=== PATIENT | male | born 1960 | race African-American/Black ===

== ENCOUNTER 2017-04-17 07:03 | Emergency (ER) | payer OTHER ==
[~2017-04-17] VITALS: Ht 190.5 cm; Wt 122.5 kg
[2017-04-17 07:13] VITALS: BP 172/89
--- NOTE | 2017-04-17 07:23 | PHYS DOC ---
Adult General Chief Complaint Chief Complaint: ABDOMINAL PAIN HPI HPI Patient is a 56 year old male with history of diabetes type 2, hypertension, high cholesterol, acute otitis, who presents today complaining of moderate constant right upper quadrant abdominal pain with no nausea vomiting for 5 days. Patient denies any fever. Patient states the last time he had pancreatitis was 5 years ago and he was seen at [facility] and has been following up with a specialist. Patient denies any alcohol use. He states the last time he had pancreatitis the pain was on the right upper quadrant and this pain feels similar. He states his pain is worsened by oral intake and he has not been eating much for the last 5 days. He states he has also had a cough for a few days. Patient states the last time he was dx with pancreatitis he had an URI. Review of Systems Review of Systems Constitutional: Denies fever or chills [] Eyes: Denies change in visual acuity, redness, or eye pain [] HENT: Denies nasal congestion or sore throat [] Respiratory: reports cough denies shortness of breath [] Cardiovascular: No additional information not addressed in HPI [] GI: Right upper quadrant abdominal pain, denies nausea, vomiting, bloody stools or diarrhea [] : Denies dysuria or hematuria [] Musculoskeletal: Denies back pain or joint pain [] Integument: Denies rash or skin lesions [] Neurologic: Denies headache, focal weakness or sensory changes [] All other systems were reviewed and found to be within normal limits, except as documented in this note. Current Medications Current Medications Current Medications Medications (Trade) Dose Ordered Sig/[facility] Start Time Stop Time Status Last Admin Dose Admin Famotidine (Pepcid Vial) 20 mg 1X ONCE 04/17/17 07:30 04/17/17 07:31 DC 04/17/17 07:30 20 MG Fentanyl Citrate (Fentanyl 2ml Vial) 50 mcg 1X ONCE 04/17/17 07:30 04/17/17 07:31 DC 04/17/17 07:34 50 MCG Info (Do NOT chart on this entry -- for MONITORING) 1 each PRN DAILY PRN 04/17/17 08:00 04/19/17 07:59 Iohexol (Omnipaque 300 Mg/ml) 75 ml 1X ONCE 04/17/17 08:00 04/17/17 08:01 DC 04/17/17 08:04 75 ML Ondansetron HCl (Zofran) 4 mg 1X ONCE 04/17/17 07:30 04/17/17 07:31 DC 04/17/17 07:32 4 MG Sodium Chloride 1,000 ml @ 1,000 mls/hr 1X ONCE 04/17/17 07:30 04/17/17 08:29 DC 04/17/17 07:28 1,000 MLS/HR Allergies Allergies Allergies Coded Allergies Type Severity Reaction Last Updated Verified No Known Drug Allergies 04/17/17 No Physical Exam Physical Exam Constitutional: Well developed, well nourished, no acute distress, non-toxic appearance. [] HENT: Normocephalic, atraumatic, bilateral external ears normal, oropharynx moist, no oral exudates, nose normal. [] Eyes: PERRLA, EOMI, conjunctiva normal, no discharge. [] Neck: Normal range of motion, no tenderness, supple, no stridor. [] Cardiovascular:Heart rate regular rhythm, no murmur [] Lungs & Thorax: Bilateral breath sounds clear to auscultation [] Abdomen: Bowel sounds normal, soft, slight tenderness to the right upper quadrant with negative [place] sign, no right lower quadrant tenderness, no masses, no pulsatile masses. [] Skin: Warm, dry, no erythema, no rash. [] Back: No tenderness, no CVA tenderness. [] Extremities: No tenderness, no cyanosis, no clubbing, ROM intact, no edema. [] Neurologic: Alert and oriented X 3, normal motor function, normal sensory function, no focal deficits noted. [] Psychologic: Affect normal, judgement normal, mood normal. [] Current Patient Data Vital Signs Vital Signs Date Time Temp Pulse Resp B/P (MAP) Pulse Ox O2 Delivery O2 Flow Rate FiO2 04/17/17 07:13 98.9 93 18 172/89 (116) 96 98.9 Lab Values Laboratory Tests Test 04/17/17 07:18 White Blood Count 11.5 x10^3/uL (4.0-11.0) H Red Blood Count 4.76 x10^6/uL (4.30-5.70) Hemoglobin 13.8 g/dL (13.0-17.5) Hematocrit 41.8 % (39.0-53.0) Mean Corpuscular Volume 88 fL (79-100) Mean Corpuscular Hemoglobin 29 pg (25-35) Mean Corpuscular Hemoglobin Concent 33 g/dL (31-37) Red Cell Distribution Width 14.9 % (11.5-14.5) H Platelet Count 282 x10^3/uL (140-400) Neutrophils (%) (Auto) 70 % (31-73) Lymphocytes (%) (Auto) 21 % (24-48) L Monocytes (%) (Auto) 7 % (0-9) Eosinophils (%) (Auto) 1 % (0-3) Basophils (%) (Auto) 1 % (0-3) Neutrophils # (Auto) 8.1 x10^3uL (1.8-7.7) H Lymphocytes # (Auto) 2.4 x10^3/uL (1.0-4.8) Monocytes # (Auto) 0.7 x10^3/uL (0.0-1.1) Eosinophils # (Auto) 0.1 x10^3/uL (0.0-0.7) Basophils # (Auto) 0.1 x10^3/uL (0.0-0.2) Urine Collection Type Unknown Urine Color Yellow Urine Clarity Clear Urine pH 5.5 Urine Specific [place] >=1.030 Urine Protein Negative mg/dL (NEG-TRACE) Urine Glucose (UA) >=1000 mg/dL (NEG) Urine Ketones (Stick) Trace mg/dL (NEG) Urine Blood Negative (NEG) Urine Nitrite Negative (NEG) Urine Bilirubin Negative (NEG) Urine Urobilinogen Dipstick 0.2 mg/dL (0.2 mg/dL) Urine Leukocyte Esterase Negative (NEG) Urine RBC 0 /HPF (0-2) Urine WBC Rare /HPF (0-4) Urine Squamous Epithelial Cells Few /LPF Urine Bacteria Few /HPF (0-FEW) Urine Mucus Mod /LPF Sodium Level 138 mmol/L (136-145) Potassium Level 3.6 mmol/L (3.5-5.1) Chloride Level 101 mmol/L (98-107) Carbon Dioxide Level 29 mmol/L (21-32) Anion Gap 8 (6-14) Blood Urea Nitrogen 14 mg/dL (8-26) Creatinine 0.9 mg/dL (0.7-1.3) Estimated GFR (Cockcroft-Gault) 87.3 BUN/Creatinine Ratio 16 (6-20) Glucose Level 230 mg/dL (70-99) H Calcium Level 9.3 mg/dL (8.5-10.1) Total Bilirubin 0.5 mg/dL (0.2-1.0) Aspartate Amino Transferase (AST) 9 U/L (15-37) L Alanine Aminotransferase (ALT) 19 U/L (16-63) Alkaline Phosphatase 113 U/L (46-116) Total Protein 8.4 g/dL (6.4-8.2) H Albumin 3.6 g/dL (3.4-5.0) Albumin/Globulin Ratio 0.8 (1.0-1.7) L Lipase 457 U/L (73-393) H Urine Opiates Screen Pos (NEG) Urine Methadone Screen Neg (NEG) Urine Barbiturates Neg (NEG) Urine Phencyclidine Screen Neg (NEG) Urine Amphetamine/Methamphetamine Neg (NEG) Urine Benzodiazepines Screen Neg (NEG) Urine Cocaine Screen Neg (NEG) Urine Cannabinoids Screen Neg (NEG) Ethyl Alcohol Level < 10 mg/dL (0-10) Urine Ethyl Alcohol Neg (NEG) Laboratory Tests 04/17/17 07:18 Laboratory Tests 04/17/17 07:18 EKG EKG [] Radiology/Procedures Radiology/Procedures []PROCEDURE: CHEST AP ONLY Single view chest History:cough, upper back pain for 5 days An AP view of the chest is submitted. Comparison: 08/07/2005. Findings: There is no significant infiltrate, pleural effusion, or pneumothorax. The pericardial cardiac silhouette is within normal limits in size. Impression: There is no evidence of acute cardiopulmonary disease. DICTATED and SIGNED BY: TAWANA MCCLELLAND MD DATE: 04/17/17 0754 CC: SHIRIN BUNN APRN; JUAN FU MD ~ Course & Med Decision Making Course & Med Decision Making Pertinent Labs and Imaging studies reviewed. (See chart for details) This is a 56-year-old male patient with history of pancreatitis who presents today complaining of right upper quadrant abdominal pain. He is also complaining of a cough. WBC 11.5. Lipase 457, glucose 230. Lipase was 457, CT of the abdomen and pelvic was negative for any acute findings. Patient's pain is well controlled. He was discharged on a clear liquid diet. He has a specialist at [facility] Dr. Cornell that he follows up with for chronic pancreatitis. Recommended he follows up tomorrow. Discharged with Zofran and 10 tablets of [place]. Dragon Disclaimer Dragon Disclaimer This electronic medical record was generated, in whole or in part, using a voice recognition dictation system. Departure Departure Impression: Primary Impression: Pancreatitis, acute Additional Impression: Right upper quadrant abdominal pain Disposition: 01 HOME, SELF-CARE Condition: STABLE Patient Instructions: Abdominal Pain, Acute Pancreatitis Additional Instructions: You were seen with abdominal pain. Your CT of the abdomen and pelvic was negative for any acute findings. A lipase was 457, normal is 73-393 this is a slight elevation from normal. Please take a clear liquid diet the next 1-3 days and push fluids. Please follow-up with the specialist at [facility] as soon as possible. Call them tomorrow morning and set up a follow-up appointment. Please return to the emergency room if symptoms worsen. Scripts Hydrocodone/Apap 5-325 (NORCO 5-325 TABLET) 1 Each Tablet 1 TAB PO Q4-6HRS Y for PAIN, #10 TAB Prov: SHRIIN BUNN APRN 04/17/17 Ondansetron (ZOFRAN ODT) 4 Mg Tab.rapdis 1 TAB SL Q8HRS, #15 TAB Prov: SHIRIN BUNN APRN 04/17/17 Problem Qualifiers Primary Impression: Pancreatitis, acute Pancreatitis type: other Acute pancreatitis complication: unspecified Qualified Codes: K85.80 - Other acute pancreatitis without necrosis or infection SHIRIN BUNN APRN Apr 17, 2017 07:23
[2017-04-17] MEDS ORDERED: fentaNYL PF VIAL 100 MCG/2 ML VIAL IV ONE (07:30)
[2017-04-17] MEDS ORDERED: FAMOTIDINE 20 MG/2 ML VIAL IVP ONE (07:30)
[2017-04-17] MEDS ORDERED: IV NORMAL SALINE 1000ML BAG 1,000 ML IV ONE (07:30)
[2017-04-17] MEDS ORDERED: ONDANSETRON PF 4 MG/2 ML VIAL. IV ONE (07:30)
[2017-04-17 07:35] LABS: BASO # 0.1 x10^3/uL (0.0-0.2); BASO % 1 % (0-3); EOS % 1 % (0-3); HEMATOCRIT 41.8 % (39.0-53.0); HEMOGLOBIN 13.8 g/dL (13.0-17.5); LYMPH # 2.4 x10^3/uL (1.0-4.8); LYMPH % 21 % (24-48); MEAN CORPUSCULAR HEMOGLOBIN 29 pg (25-35); MEAN CORPUSCULAR HGB CONC 33 g/dL (31-37); MEAN CORPUSCULAR VOLUME 88 fL (79-100); MONO % 7 % (0-9); NEUT % 70 % (31-73); PLATELET COUNT 282 x10^3/uL (140-400); RED BLOOD COUNT 4.76 x10^6/uL (4.30-5.70); RED CELL DISTRIBUTION WIDTH 14.9 % (11.5-14.5); WHITE BLOOD COUNT 11.5 x10^3/uL (4.0-11.0)
[2017-04-17 07:36] LABS: BILIRUBIN,URINE NEGATIVE (NEG); GLUCOSE,URINE >=1000 mg/dL (NEG); NITRITE,URINE NEGATIVE (NEG); PH,URINE 5.5; PROTEIN,URINE NEGATIVE (NEG-TRACE); UROBILINOGEN,URINE 0.2 mg/dL (0.2 mg/dL)
[2017-04-17 07:40] LABS: SQUAMOUS EPITHELIAL CELL,UR FEW /LPF
[2017-04-17 07:41] LABS: BACTERIA,URINE FEW /HPF (0-FEW); RBC,URINE 0 /HPF (0-2); WBC,URINE RARE /HPF (0-4)
[2017-04-17 07:43] LABS: BARBITURATES NEG (NEG); BENZODIAZEPINES NEG (NEG); CALCIUM 9.3 mg/dL (8.5-10.1); CANNABINOIDS NEG (NEG); COCAINE NEG (NEG); CREATININE 0.9 mg/dL (0.7-1.3); GFR 87.3; METHADONE NEG (NEG); OPIATES POS (NEG); PHENCYCLIDINE NEG (NEG); POTASSIUM 3.6 mmol/L (3.5-5.1)
[2017-04-17 07:48] LABS: ALBUMIN 3.6 g/dL (3.4-5.0); ALBUMIN/GLOBULIN RATIO 0.8 (1.0-1.7); TOTAL BILIRUBIN 0.5 mg/dL (0.2-1.0); TOTAL PROTEIN 8.4 g/dL (6.4-8.2)
--- NOTE | 2017-04-17 07:59 | RAD ---
Single view chest History:cough, upper back pain for 5 days An AP view of the chest is submitted. Comparison: 08/07/2005. Findings: There is no significant infiltrate, pleural effusion, or pneumothorax. The pericardial cardiac silhouette is within normal limits in size. Impression: There is no evidence of acute cardiopulmonary disease.
[2017-04-17] MEDS ORDERED: IOHEXOL 300 MG/ML 100ML VIAL. IV ONE (08:00)
[2017-04-17] MEDS ORDERED: CONTRAST GIVEN MC PRN (08:00)
--- NOTE | 2017-04-17 08:34 | RAD ---
CT ABD PELV W/ IV CONTRST ONLY History:Abdominal pain on the right side, back pain for 4 days Technique: After administration of intravenous contrast, CT imaging was performed of the abdomen and pelvis, multiplanar construction images submitted. Exposure: One or more of the following individualized dose reduction techniques were utilized for this exam: 1. Automated exposure control.2. Adjustment of the mA and/or KV according to patient size.3. Use of iterative reconstruction technique. Contrast: 75 cc Omnipaque 300 Comparison: 10/10/2009 Findings: There is no significant abnormality of the limited visualized lung bases. There is no focal abnormality of the liver, spleen, pancreas, adrenal glands, gallbladder. Both kidneys enhance, no hydronephrosis. There is a 3 mm right renal calculus inferiorly. No ureteral calculus is identified. Accurate evaluation of bowel is limited without oral contrast. There is no significant bowel dilatation, free air, free fluid. Normal appendix is visualized. There is more advanced degenerative disc disease with vacuum phenomena L4-5, spondylosis at this level and at least mild lateral recess stenosis bilaterally. There is moderate bilateral L4-5 neural foramina compromise. Impression: 1.No significant acute abnormality is identified. Normal appendix is visualized. There is small nonobstructive right renal calculus. 2. There is degenerative disc disease and spondylosis at L4-5 at which there is at least mild lateral recess stenosis, also bilateral moderate neural foramina compromise.
[2017-04-17] MEDS ORDERED: HYDR-971 PO (09:31)
[2017-04-17] MEDS ORDERED: ONDA4TAB10 SL (09:31)
== END 2017-04-17 09:48 | disposition home or self-care (01) ==
LOC: ER 07:03
DX: K85.90 Acute pancreatitis without necrosis or infection, unspecified (principal); R05 Cough; E78.00 Pure hypercholesterolemia, unspecified; E11.9 Type 2 diabetes mellitus without complications; I10 Essential (primary) hypertension
CPT/HCPCS: 36415; 71010; 74177; 80053; 80307; 81001; 83690; 85025; 96361; 96374; 96375; 99285; G0480; J2405; J3010; J7030; Q9967; S0028; G0479

== ENCOUNTER 2017-08-12 08:40 | Emergency (ER) | payer OTHER ==
[2017-08-12 09:21] LABS: ADD MAN DIFF? NO
[2017-08-12 09:23] LABS: BASO # 0.1 x10^3/uL (0.0-0.2); BASO % 1 % (0-3); EOS # 0.1 x10^3/uL (0.0-0.7); EOS % 1 % (0-3); HEMATOCRIT 42.7 % (39.0-53.0); HEMOGLOBIN 13.9 g/dL (13.0-17.5); LYMPH # 1.7 x10^3/uL (1.0-4.8); LYMPH % 20 % (24-48); MEAN CORPUSCULAR HEMOGLOBIN 29 pg (25-35); MEAN CORPUSCULAR HGB CONC 33 g/dL (31-37); MEAN CORPUSCULAR VOLUME 88 fL (79-100); MONO # 0.6 x10^3/uL (0.0-1.1); MONO % 7 % (0-9); NEUT # 5.9 x10^3uL (1.8-7.7); NEUT % 71 % (31-73); PLATELET COUNT 285 x10^3/uL (140-400); RED BLOOD COUNT 4.83 x10^6/uL (4.30-5.70); RED CELL DISTRIBUTION WIDTH 14.4 % (11.5-14.5); WHITE BLOOD COUNT 8.4 x10^3/uL (4.0-11.0)
[2017-08-12] MEDS: ONDANSETRON PF 4 MG/2 ML VIAL. IV (09:30)
[2017-08-12] MEDS: fentaNYL PF VIAL 100 MCG/2 ML VIAL IV (09:31)
[2017-08-12] MEDS: IV NORMAL SALINE 1000ML BAG 1,000 ML IV (09:32)
[2017-08-12 09:35] LABS: ANION GAP 14 (6-14); BLOOD UREA NITROGEN 20 mg/dL (8-26); CALCIUM 9.9 mg/dL (8.5-10.1); CARBON DIOXIDE 26 mmol/L (21-32); CHLORIDE 99 mmol/L (98-107); CREATININE 1.1 mg/dL (0.7-1.3); GFR 83.5; GLUCOSE 310 mg/dL (70-99); POTASSIUM 4.1 mmol/L (3.5-5.1); SODIUM 139 mmol/L (136-145)
[2017-08-12 09:44] LABS: TROPONINI < 0.017 ng/mL (0.000-0.055)
[2017-08-12 09:49] LABS: ALBUMIN 3.9 g/dL (3.4-5.0); ALK PHOS 130 U/L (46-116); ALT (SGPT) 22 U/L (16-63); DIRECT BILIRUBIN 0.1 mg/dL (0.0-0.2); LIPASE 618 U/L (73-393); TOTAL BILIRUBIN 0.6 mg/dL (0.2-1.0); TOTAL PROTEIN 8.4 g/dL (6.4-8.2)
[2017-08-12 10:01] LABS: AST (SGOT) 7 U/L (15-37)
[2017-08-12] MEDS: LIDO:MAALOX:DONNATAL 1:1:1 15 ML SINGLE DOSE SWSW (10:57)
[2017-08-12 13:58] LABS: BILIRUBIN,URINE NEGATIVE (NEG); CLARITY,URINE CLEAR; COLOR,URINE YELLOW; GLUCOSE,URINE 500 mg/dL (NEG); PROTEIN,URINE NEGATIVE (NEG-TRACE)
[2017-08-12 13:59] LABS: BACTERIA,URINE 0 /HPF (0-FEW); HYALINE CASTS, URINE FEW /HPF; NITRITE,URINE NEGATIVE (NEG); RBC,URINE 0 /HPF (0-2); SQUAMOUS EPITHELIAL CELL,UR OCC /LPF; UROBILINOGEN,URINE 0.2 mg/dL (0.2 mg/dL); WBC,URINE 0 /HPF (0-4)
== END 2017-08-12 14:55 | disposition home or self-care (01) ==
LOC: ER 08:40
DX: R10.13 Epigastric pain (principal); E11.9 Type 2 diabetes mellitus without complications; E78.00 Pure hypercholesterolemia, unspecified; I10 Essential (primary) hypertension; K21.9 Gastro-esophageal reflux disease without esophagitis; F32.9 Major depressive disorder, single episode, unspecified
CPT/HCPCS: 36415; 76705; 80048; 80076; 81001; 83605; 83690; 84484; 85025; 93005; 96361; 96374; 96375; 99285-25; J2405; J3010; J7030

== ENCOUNTER → 2017-08-16 | Outpatient (CLI) | payer OTHER ==
[2017-08-16] MEDS: IOHEXOL 240 MG/ML 50ML VIAL. PO (09:00)
[2017-08-16] MEDS: IOHEXOL 300 MG/ML 100ML VIAL. IV (09:32)
== END | disposition home or self-care (01) ==
LOC: KCIC CT 08:13
DX: K85.90 Acute pancreatitis without necrosis or infection, unspecified (principal); N20.0 Calculus of kidney; K76.0 Fatty (change of) liver, not elsewhere classified; N32.89 Other specified disorders of bladder
CPT/HCPCS: 74178; Q9966; Q9967

== ENCOUNTER → 2017-08-19 | Day surgery (SDC) | payer OTHER, BC ==
[~2017-08-19] MED LIST: LIDOCAINE 1% PF 2 ML VIAL. ID; LIDOCAINE 2% 100 MG/5 ML SYRINGE.; MORPHINE SULFATE 4 MG/ML DISP.SYRIN. IV; ONDANSETRON PF 4 MG/2 ML VIAL. IV; PROCHLORPERAZINE 10 MG/2 ML VIAL. IV; PROPOFOL 40 ML IV; fentaNYL PF VIAL 100 MCG/2 ML VIAL IV
[2017-08-19] MEDS: IV RINGERS,LACTATED 1000ML 1,000 ML IV (07:00)
[2017-08-19 10:07] LABS: POC GLUCOSE 251 mg/dL (70-99)
[2017-08-19 12:22] LABS: CHOLESTEROL 159 mg/dL (0-200); HDLC 46 mg/dL (40-60); LDLC 89 mg/dL (0-100); NON-HDL CHOLESTEROL 113 mg/dL (0-129); TRIGLYCERIDES 122 mg/dL (0-150); VLDLC 24 mg/dL (0-40)
[2017-08-19 12:23] LABS: CHOLESTEROL/HDL RATIO 3.5
== END ==
LOC: ENDOS 09:31
DX: K63.5 Polyp of colon (principal); K57.30 Diverticulosis of large intestine without perforation or abscess without bleeding; K64.0 First degree hemorrhoids; E11.9 Type 2 diabetes mellitus without complications; E78.00 Pure hypercholesterolemia, unspecified; Z85.048 Personal history of other malignant neoplasm of rectum, rectosigmoid junction, and anus; Z98.890 Other specified postprocedural states; Z87.891 Personal history of nicotine dependence; Z72.89 Other problems related to lifestyle; Z79.4 Long term (current) use of insulin
CPT/HCPCS: 36415; 80061; 82962; 88305; J2704

== ENCOUNTER → 2017-08-24 | Outpatient (CLI) | payer OTHER, BC ==
[2017-08-24] MEDS: SINCALIDE IV (12:32)
[2017-08-24] MEDS: NORMAL SALINE IV (12:32)
== END | disposition home or self-care (01) ==
LOC: NM 10:51
DX: K85.90 Acute pancreatitis without necrosis or infection, unspecified (principal); I10 Essential (primary) hypertension; E11.9 Type 2 diabetes mellitus without complications; Z79.4 Long term (current) use of insulin
CPT/HCPCS: 78226; 96374; 96375; A9537; J2805

== ENCOUNTER 2018-08-07 12:27 | Emergency (ER) | payer BC, OTHER ==
[~2018-08-07] VITALS: Ht 190.5 cm; Wt 112.9 kg
[~2018-08-07 12:27] MED LIST changes: +ALPR1TAB6 PO; +ATOR40TA59 PO; +BUPR300T3 PO; +CANA300T PO; +GLYB5TAB3 PO; +HYDR-2761 PO; +HYDR-3164 PO; +HYDR12.575 PO; +INSU300I SQ; -LIDOCAINE 1% PF 2 ML VIAL. ID; -LIDOCAINE 2% 100 MG/5 ML SYRINGE.; +METF500T16 PO; -MORPHINE SULFATE 4 MG/ML DISP.SYRIN. IV; +ONDA4TAB10 SL; -ONDANSETRON PF 4 MG/2 ML VIAL. IV; +PANT20TA2 PO; -PROCHLORPERAZINE 10 MG/2 ML VIAL. IV; +PROM5SYR2 PO; -PROPOFOL 40 ML IV; +SILD100T PO; -fentaNYL PF VIAL 100 MCG/2 ML VIAL IV
[2018-08-07] MEDS ORDERED: fentaNYL PF VIAL 100 MCG/2 ML VIAL IV ONE ×2 (14:15→16:00)
[2018-08-07] MEDS ORDERED: IV NORMAL SALINE 1000ML BAG 1,000 ML IV ONE ×2 (14:15→16:00)
--- NOTE | 2018-08-07 14:19 | PHYS DOC ---
Past Medical History Past Medical History: Depression, Diabetes-Type II, GERD, High Cholesterol, Hypertension Past Surgical History: Other Additional Past Surgical Histo: PCL L KNEE Alcohol Use: None Drug Use: None Adult General Chief Complaint Chief Complaint: ABDOMINAL PAIN HPI HPI Patient is a 58 year old male who presents with 1 week of right upper quadrant abdominal pain that she he rates as 7 out of 10. Patient rates his pain radiates around to his right upper back and feels like he is being stabbed. Patient denies nausea, vomiting, diarrhea, constipation, dysuria, chest pain, numbness or tingling. Patient states that he does get occasionally dizzy and short of air. Review of Systems Review of Systems Constitutional: Denies fever or chills [] Eyes: Denies change in visual acuity, redness, or eye pain [] HENT: Denies nasal congestion or sore throat [] Respiratory: Denies cough. +shortness of breath [] Cardiovascular: No additional information not addressed in HPI [] GI: Right Upper quadrant abdominal pain, denies nausea, vomiting, bloody stools or diarrhea [] : Denies dysuria or hematuria [] Musculoskeletal: Denies back pain or joint pain [] Integument: Denies rash or skin lesions [] Neurologic: Dizziness. Denies headache, focal weakness or sensory changes [] All other systems were reviewed and found to be within normal limits, except as documented in this note. Current Medications Current Medications Current Medications Medications (Trade) Dose Ordered Sig/[facility] Start Time Stop Time Status Last Admin Dose Admin Acetaminophen (Tylenol Supp) 650 mg PRN Q4HRS PRN 08/07/18 17:00 Fentanyl Citrate (Fentanyl 2ml Vial) 50 mcg PRN Q1HR PRN 08/07/18 17:15 08/08/18 17:14 Hydromorphone HCl (Dilaudid) 0.5 mg PRN Q2HRS PRN 08/07/18 17:00 Info (CONTRAST GIVEN -- Rx MONITORING) 1 each PRN DAILY PRN 08/07/18 15:15 08/09/18 15:14 Iohexol (Omnipaque 300 Mg/ml) 75 ml 1X ONCE 08/07/18 15:15 08/07/18 15:16 DC Lorazepam (Ativan) 1 mg PRN Q4HRS PRN 08/07/18 17:00 Ondansetron HCl (Zofran) 4 mg PRN Q8HRS PRN 08/07/18 17:15 08/08/18 17:14 Sodium Chloride 1,000 ml @ 80 mls/hr [id number] 08/07/18 17:12 08/08/18 17:11 Allergies Allergies Allergies Coded Allergies Type Severity Reaction Last Updated Verified No Known Drug Allergies 08/19/17 No Physical Exam Physical Exam Constitutional: Well developed, well nourished, no acute distress, non-toxic appearance. [] HENT: Normocephalic, atraumatic, bilateral external ears normal, oropharynx moist, no oral exudates, nose normal. [] Eyes: PERRLA, EOMI, conjunctiva normal, no discharge. [] Neck: Normal range of motion, no tenderness, supple, no stridor. [] Cardiovascular:Heart rate regular rhythm, no murmur [] Lungs & Thorax: Bilateral breath sounds clear to auscultation [] Abdomen: Bowel sounds normal, soft, RUQ tenderness, no masses, no pulsatile masses. [] Skin: Warm, dry, no erythema, no rash. [] Back: No tenderness, no CVA tenderness. [] Extremities: No tenderness, no cyanosis, no clubbing, ROM intact, no edema. [] Neurologic: Alert and oriented X 3, normal motor function, normal sensory function, no focal deficits noted. [] Psychologic: Affect normal, judgement normal, mood normal. [] Current Patient Data Vital Signs Vital Signs Date Time Temp Pulse Resp B/P (MAP) Pulse Ox O2 Delivery O2 Flow Rate FiO2 08/07/18 13:12 98.4 97 16 142/80 (100) 99 Room Air 98.4 Lab Values Laboratory Tests Test 08/07/18 14:00 08/07/18 14:30 Urine Collection Type Unknown Urine Color Yellow Urine Clarity Clear Urine pH 5.0 Urine Specific [place] >=1.030 Urine Protein Negative mg/dL (NEG-TRACE) Urine Glucose (UA) >=1000 mg/dL (NEG) Urine Ketones (Stick) Trace mg/dL (NEG) Urine Blood Negative (NEG) Urine Nitrite Negative (NEG) Urine Bilirubin Negative (NEG) Urine Urobilinogen Dipstick 0.2 mg/dL (0.2 mg/dL) Urine Leukocyte Esterase Negative (NEG) Urine RBC Occ /HPF (0-2) Urine WBC 1-4 /HPF (0-4) Urine Squamous Epithelial Cells Few /LPF Urine Amorphous Sediment Present /HPF Urine Bacteria 0 /HPF (0-FEW) Urine Hyaline Casts Many /HPF Urine Mucus Mod /LPF Urine Opiates Screen Neg (NEG) Urine Methadone Screen Neg (NEG) Urine Barbiturates Neg (NEG) Urine Phencyclidine Screen Neg (NEG) Urine Amphetamine/Methamphetamine Neg (NEG) Urine Benzodiazepines Screen Pos (NEG) Urine Cocaine Screen Neg (NEG) Urine Cannabinoids Screen Neg (NEG) Urine Ethyl Alcohol Neg (NEG) White Blood Count 7.2 x10^3/uL (4.0-11.0) Red Blood Count 4.48 x10^6/uL (4.30-5.70) Hemoglobin 13.2 g/dL (13.0-17.5) Hematocrit 39.6 % (39.0-53.0) Mean Corpuscular Volume 89 fL (79-100) Mean Corpuscular Hemoglobin 30 pg (25-35) Mean Corpuscular Hemoglobin Concent 33 g/dL (31-37) Red Cell Distribution Width 13.8 % (11.5-14.5) Platelet Count 243 x10^3/uL (140-400) Neutrophils (%) (Auto) 59 % (31-73) Lymphocytes (%) (Auto) 29 % (24-48) Monocytes (%) (Auto) 8 % (0-9) Eosinophils (%) (Auto) 3 % (0-3) Basophils (%) (Auto) 1 % (0-3) Neutrophils # (Auto) 4.2 x10^3uL (1.8-7.7) Lymphocytes # (Auto) 2.0 x10^3/uL (1.0-4.8) Monocytes # (Auto) 0.6 x10^3/uL (0.0-1.1) Eosinophils # (Auto) 0.2 x10^3/uL (0.0-0.7) Basophils # (Auto) 0.1 x10^3/uL (0.0-0.2) Sodium Level 134 mmol/L (136-145) L Potassium Level 4.1 mmol/L (3.5-5.1) Chloride Level 95 mmol/L (98-107) L Carbon Dioxide Level 30 mmol/L (21-32) Anion Gap 9 (6-14) Blood Urea Nitrogen 23 mg/dL (8-26) Creatinine 1.7 mg/dL (0.7-1.3) H Estimated GFR (Cockcroft-Gault) 50.3 BUN/Creatinine Ratio 14 (6-20) Glucose Level 452 mg/dL (70-99) H Calcium Level 9.6 mg/dL (8.5-10.1) Total Bilirubin 0.4 mg/dL (0.2-1.0) Aspartate Amino Transferase (AST) 10 U/L (15-37) L Alanine Aminotransferase (ALT) 20 U/L (16-63) Alkaline Phosphatase 128 U/L (46-116) H Troponin I Quantitative < 0.017 ng/mL (0.000-0.055) Total Protein 8.3 g/dL (6.4-8.2) H Albumin 3.6 g/dL (3.4-5.0) Albumin/Globulin Ratio 0.8 (1.0-1.7) L Lipase 507 U/L (73-393) H Laboratory Tests 08/07/18 14:30 Laboratory Tests 08/07/18 14:30 EKG EKG Sinus rhythm and no STEMI Interpretation Time: [address] Patel Radiology/Procedures Radiology/Procedures [] Impressions: [facility] [address] [place], [place] [id number] IMAGING REPORT Signed PATIENT: VIKA TODD ACCOUNT: [id number] : 1960 LOCATION: ER AGE: 58 SEX: M EXAM STATUS: REG ER ORD. PHYSICIAN: PAWAN CHAPMAN APRN REASON: SOA PROCEDURE: CHEST PA & LATERAL PROCEDURE: CHEST PA LATERAL CLINICAL INDICATION: UPPER ABD PAIN, HX PANCREATITIS, GERD, HTN, DIABETES COMPARISON: None FINDINGS: No pneumothorax identified. Cardiac and mediastinal contours unremarkable. No pulmonary consolidation or acute airspace disease. No acute osseous abnormalities identified. IMPRESSION: No pulmonary consolidation or acute airspace disease. Electronically signed by: Randy Sarah DO (08/07/2018 3:03 PM) [facility] DICTATED and SIGNED BY: RANDY SARAH DO DATE: 08/07/18 1503 [facility] [address] [place] [address] IMAGING REPORT Signed PATIENT: VIKA TODD ACCOUNT: [id number] : 1960 LOCATION: ER AGE: 58 SEX: M EXAM STATUS: REG ER ORD. PHYSICIAN: PAWAN CHAPMAN APRN REASON: RUQ ABDOMINAL PAIN PROCEDURE: CT ABD PELV W/ IV CONTRST ONLY CT study of the abdomen and pelvis with contrast Clinical indications: Right upper quadrant abdominal pain. At technique: After IV infusion of 60 cc of Omnipaque 300, helical CT scanning of the abdomen and pelvis was performed. No GI contrast was administered. This may decrease the sensitivity to detect GI tract pathology. PQRS compliance Statement One or more of the following individualized dose reduction techniques were utilized for this study: 1. Automated exposure control 2. Adjustment of the mA and/or kV according to patient size 3. Use of iterative reconstruction technique COMPARISON: August 16, 2017. FINDINGS: The liver and spleen and gallbladder are normal. No extra hepatic biliary ductal dilatation is seen. The pancreas enhances homogeneously. There is chronic peripancreatic increased soft tissue attenuation around the head and neck of the pancreas. This was seen previously. No peripancreatic free fluid or pseudocyst is evident. No dilatation of main pancreatic duct is evident. Retroperitoneal lymph nodes are unchanged. No focal aneurysmal dilatation of the abdominal aorta is seen. No adrenal mass is evident. Small nonobstructing stone of the lower pole of the right kidney is seen. No hydronephrosis or hydroureter is evident on either side. There is chronic perinephric inflammatory stranding. This is unchanged. No pyelonephritis is evident by CT. Urinary bladder wall is smooth. Urinary bladder is not abnormally distended. There is moderate fecal retention within the rectum and colon. Terminal ileum is unremarkable. The appendix is normal. Wall thickening of the stomach and duodenum is seen which may be secondary to incomplete distention but could be due to gastroduodenitis. No obstructive bowel pattern is evident. No free air or free fluid or mesenteric edema is seen. No lung base consolidation is evident. No lytic process is evident. IMPRESSION: There is chronic peripancreatic inflammation around the head and neck of the pancreas. This could be due to old pancreatitis and chronic scarring but correlation with pancreatic enzymes is recommended. Pancreatic neoplasia could have this appearance as well but this is unchanged and no new mass is evident in this area. The head and neck of pancreas are unchanged in size. In addition, there is no progressive dilatation of the main pancreatic duct or extrahepatic bile duct. Stable retroperitoneal lymph nodes nodes. Nonobstructing lower pole right renal stone. Chronic perinephric inflammatory change which is unchanged. Moderate fecal retention throughout the colon and down into the rectum. There is diffuse thickening of the stomach and duodenum which may be due to incomplete distention but may be seen with gastroduodenitis. In addition, there is wall thickening of the distal esophagus which may be seen with reflux esophagitis. Electronically signed by: Jesi Johnson MD (08/07/2018 4:16 PM) [id number] DICTATED and SIGNED BY: JESI JOHNSON MD DATE: 08/07/18 1616 Course & Med Decision Making Course & Med Decision Making Patient is a 58 year old male who presents with 1 week of right upper quadrant abdominal pain that she he rates as 7 out of 10. Patient rates his pain radiates around to his right upper back and feels like he is being stabbed. Patient denies nausea, vomiting, diarrhea, constipation, dysuria, chest pain, numbness or tingling. Patient states that he does get occasionally dizzy and short of air. Skin pink warm and dry. Mucous Membranes are moist. Patient states he's been eating the BRAT diet to see if that would help. Ambulatory with a steady gait. No extremity edema. Abdomen is soft and tender at the right upper quadrant. Patient does have tenderness to the right upper back also. No signs are within normal limits. Afebrile. Patient states he has a history of pancreatitis of which that that is what this feels like, hypertension, high cholesterol, GERD, diabetes II. Lungs are clear to auscultation all lobes. Heart rate regular without murmur. No focal weaknesses. Speaks in full clear sentences. CT ABD PELV shows IMPRESSION: There is chronic peripancreatic inflammation around the head and neck of the pancreas. This could be due to old pancreatitis and chronic scarring but correlation with pancreatic enzymes is recommended. Pancreatic neoplasia could have this appearance as well but this is unchanged and no new mass is evident in this area. The head and neck of pancreas are unchanged in size. In addition, there is no progressive dilatation of the main pancreatic duct or extrahepatic bile duct. Stable retroperitoneal lymph nodes nodes. Nonobstructing lower pole right renal stone. Chronic perinephric inflammatory change which is unchanged. Moderate fecal retention throughout the colon and down into the rectum. There is diffuse thickening of the stomach and duodenum which may be due to incomplete distention but may be seen with gastroduodenitis. In addition, there is wall thickening of the distal esophagus which may be seen with reflux esophagitis. Chest xray shows no acute findings. Lipase 507, Alk Phos 128, Blood sugar 452. I have spoken to Dr Alaniz and patient will be admitted for pancreatitis and I will also consult GI. 174: Dr Alaniz has spoken with patient and Dr Alaniz states to me that the patient is refusing to be admitted. Patient will sign out AMA. Arielle Disclaimer Dragon Disclaimer This electronic medical record was generated, in whole or in part, using a voice recognition dictation system. Departure Departure Impression: Primary Impression: Pancreatitis Disposition: 07 AGAINST MEDICAL ADVICE Condition: STABLE Referrals: JUAN FU MD (PCP) Patient Instructions: Acute Pancreatitis Additional Instructions: Follow up with GI as soon as possible. Scripts Hydrocodone/Apap 5-325 (NORCO 5-325 TABLET) 1 Each Tablet 1 TAB PO PRN Q6HRS PRN for PAIN, #5 TAB 0 Refills Prov: PAWAN CHAPMAN APRN 08/07/18 Problem Qualifiers Primary Impression: Pancreatitis Chronicity: acute Pancreatitis type: unspecified pancreatitis type Acute pancreatitis complication: unspecified Qualified Codes: K85.90 - Acute pancreatitis without necrosis or infection, unspecified PAWAN CHAPMAN APRN Aug 07, 2018 14:19
[2018-08-07 14:21] LABS: BILIRUBIN,URINE NEGATIVE (NEG); CLARITY,URINE CLEAR; COLOR,URINE YELLOW; NITRITE,URINE NEGATIVE (NEG); PROTEIN,URINE NEGATIVE (NEG-TRACE); UROBILINOGEN,URINE 0.2 mg/dL (0.2 mg/dL)
[2018-08-07 14:27] LABS: SQUAMOUS EPITHELIAL CELL,UR FEW /LPF
[2018-08-07 14:28] LABS: AMORPHOUS SEDIMENT,UR PRESENT /HPF; AMPHETAMINE/METHAMPHETAMINE NEG (NEG); BACTERIA,URINE 0 /HPF (0-FEW); BARBITURATES NEG (NEG); BENZODIAZEPINES POS (NEG); CANNABINOIDS NEG (NEG); COCAINE NEG (NEG); HYALINE CASTS, URINE MANY /HPF; METHADONE NEG (NEG); OPIATES NEG (NEG); PHENCYCLIDINE NEG (NEG); RBC,URINE OCC /HPF (0-2)
[2018-08-07 14:39] LABS: BASO # 0.1 x10^3/uL (0.0-0.2); BASO % 1 % (0-3); EOS # 0.2 x10^3/uL (0.0-0.7); EOS % 3 % (0-3); HEMATOCRIT 39.6 % (39.0-53.0); HEMOGLOBIN 13.2 g/dL (13.0-17.5); LYMPH % 29 % (24-48); MEAN CORPUSCULAR HEMOGLOBIN 30 pg (25-35); MEAN CORPUSCULAR HGB CONC 33 g/dL (31-37); MEAN CORPUSCULAR VOLUME 89 fL (79-100); MONO # 0.6 x10^3/uL (0.0-1.1); MONO % 8 % (0-9); NEUT # 4.2 x10^3uL (1.8-7.7); NEUT % 59 % (31-73); PLATELET COUNT 243 x10^3/uL (140-400); RED BLOOD COUNT 4.48 x10^6/uL (4.30-5.70); RED CELL DISTRIBUTION WIDTH 13.8 % (11.5-14.5); WHITE BLOOD COUNT 7.2 x10^3/uL (4.0-11.0)
--- NOTE | 2018-08-07 14:46 | EKG ---
[facility] [address] [place] [address] Test Date: 2018-08-07 Test Time: 14:32:25 Pat Name: VIKA TODD Department: Room: Gender: M [employer] Service Technician: : 1960 Requested By: PAWAN CHAPMAN Order Number: [id number] Reading MD: Osmar Rodriguez MD Measurements Intervals [place] Rate: 82 P: 7 UT: 162 QRS: -3 QRSD: 90 T: 22 QT: 338 QTc: 397 Interpretive Statements SINUS RHYTHM NON-SPECIFIC ST/T CHANGES Electronically Signed On 08-11-2018 13:15:22 CDT by Osmar Rodriguez MD
[2018-08-07 14:55] LABS: CALCIUM 9.6 mg/dL (8.5-10.1); CREATININE 1.7 mg/dL (0.7-1.3); GFR 50.3; POTASSIUM 4.1 mmol/L (3.5-5.1)
--- NOTE | 2018-08-07 15:06 | RAD ---
PROCEDURE: CHEST PA LATERAL CLINICAL INDICATION: UPPER ABD PAIN, HX PANCREATITIS, GERD, HTN, DIABETES COMPARISON: None FINDINGS: No pneumothorax identified. Cardiac and mediastinal contours unremarkable. No pulmonary consolidation or acute airspace disease. No acute osseous abnormalities identified. IMPRESSION: No pulmonary consolidation or acute airspace disease. Electronically signed by: Randy Sarah DO (08/07/2018 3:03 PM) [facility]
[2018-08-07 15:14] LABS: ALBUMIN 3.6 g/dL (3.4-5.0); ALBUMIN/GLOBULIN RATIO 0.8 (1.0-1.7); TOTAL BILIRUBIN 0.4 mg/dL (0.2-1.0); TOTAL PROTEIN 8.3 g/dL (6.4-8.2)
[2018-08-07] MEDS ORDERED: IOHEXOL 300 MG/ML 100ML VIAL. IV ONE (15:15)
[2018-08-07] MEDS ORDERED: CONTRAST GIVEN. MC PRN (15:15)
--- NOTE | 2018-08-07 16:19 | RAD ---
CT study of the abdomen and pelvis with contrast Clinical indications: Right upper quadrant abdominal pain. At technique: After IV infusion of 60 cc of Omnipaque 300, helical CT scanning of the abdomen and pelvis was performed. No GI contrast was administered. This may decrease the sensitivity to detect GI tract pathology. PQRS compliance Statement One or more of the following individualized dose reduction techniques were utilized for this study: 1. Automated exposure control 2. Adjustment of the mA and/or kV according to patient size 3. Use of iterative reconstruction technique COMPARISON: August 16, 2017. FINDINGS: The liver and spleen and gallbladder are normal. No extra hepatic biliary ductal dilatation is seen. The pancreas enhances homogeneously. There is chronic peripancreatic increased soft tissue attenuation around the head and neck of the pancreas. This was seen previously. No peripancreatic free fluid or pseudocyst is evident. No dilatation of main pancreatic duct is evident. Retroperitoneal lymph nodes are unchanged. No focal aneurysmal dilatation of the abdominal aorta is seen. No adrenal mass is evident. Small nonobstructing stone of the lower pole of the right kidney is seen. No hydronephrosis or hydroureter is evident on either side. There is chronic perinephric inflammatory stranding. This is unchanged. No pyelonephritis is evident by CT. Urinary bladder wall is smooth. Urinary bladder is not abnormally distended. There is moderate fecal retention within the rectum and colon. Terminal ileum is unremarkable. The appendix is normal. Wall thickening of the stomach and duodenum is seen which may be secondary to incomplete distention but could be due to gastroduodenitis. No obstructive bowel pattern is evident. No free air or free fluid or mesenteric edema is seen. No lung base consolidation is evident. No lytic process is evident. IMPRESSION: There is chronic peripancreatic inflammation around the head and neck of the pancreas. This could be due to old pancreatitis and chronic scarring but correlation with pancreatic enzymes is recommended. Pancreatic neoplasia could have this appearance as well but this is unchanged and no new mass is evident in this area. The head and neck of pancreas are unchanged in size. In addition, there is no progressive dilatation of the main pancreatic duct or extrahepatic bile duct. Stable retroperitoneal lymph nodes nodes. Nonobstructing lower pole right renal stone. Chronic perinephric inflammatory change which is unchanged. Moderate fecal retention throughout the colon and down into the rectum. There is diffuse thickening of the stomach and duodenum which may be due to incomplete distention but may be seen with gastroduodenitis. In addition, there is wall thickening of the distal esophagus which may be seen with reflux esophagitis. Electronically signed by: Dallas Johnson MD (08/07/2018 4:16 PM) [place] [id number]
[2018-08-07 16:22] VITALS: BP 129/79
[2018-08-07] MEDS ORDERED: IV NORMAL SALINE 1000ML BAG 1,000 ML IV SCH ×2 (16:46→17:12)
[2018-08-07] MEDS ORDERED: HYDROmorphone 2 MG/ML VIAL IV PRN (17:00)
[2018-08-07] MEDS ORDERED: ONDANSETRON PF 4 MG/2 ML VIAL. IV PRN ×2 (17:00→17:15)
[2018-08-07] MEDS ORDERED: ACETAMINOPHEN 650 MG SUPP.RECT. PR PRN (17:00)
[2018-08-07] MEDS ORDERED: fentaNYL PF VIAL 100 MCG/2 ML VIAL IV PRN (17:15)
[2018-08-07] MEDS ORDERED: HYDR-3164 PO (17:42)
== END 2018-08-07 17:55 | disposition left against medical advice (07) ==
LOC: ER 12:27 → UNDOADMIN 16:50 → 5 SOUTH 16:50 → ER 17:55
DX: K85.90 Acute pancreatitis without necrosis or infection, unspecified (principal); R42 Dizziness and giddiness; M54.6 Pain in thoracic spine; F32.9 Major depressive disorder, single episode, unspecified; E11.9 Type 2 diabetes mellitus without complications; K21.9 Gastro-esophageal reflux disease without esophagitis; E78.00 Pure hypercholesterolemia, unspecified; I10 Essential (primary) hypertension
CPT/HCPCS: 36415; 71046; 74177; 80053; 80307; 81001; 83690; 84484; 85025; 93005; 96361; 96374; 96376; 99284; J3010; J7030

== ENCOUNTER 2020-07-02 17:54 | Emergency (ER) | payer BC ==
[~2020-07-02] VITALS: Ht 188 cm; Wt 109.5 kg
[2020-07-02 19:15] LABS: BASO % 1 % (0-3); EOS # 0.1 x10^3/uL (0.0-0.7); EOS % 1 % (0-3); HEMATOCRIT 37.7 % (39.0-53.0); HEMOGLOBIN 12.4 g/dL (13.0-17.5); LYMPH # 2.1 x10^3/uL (1.0-4.8); LYMPH % 29 % (24-48); MEAN CORPUSCULAR HEMOGLOBIN 29 pg (25-35); MEAN CORPUSCULAR HGB CONC 33 g/dL (31-37); MEAN CORPUSCULAR VOLUME 88 fL (79-100); MONO # 0.6 x10^3/uL (0.0-1.1); MONO % 8 % (0-9); NEUT # 4.4 x10^3/uL (1.8-7.7); NEUT % 61 % (31-73); PLATELET COUNT 254 x10^3/uL (140-400); WHITE BLOOD COUNT 7.2 x10^3/uL (4.0-11.0)
[2020-07-02 19:26] LABS: GFR 92.2; POTASSIUM 4.2 mmol/L (3.5-5.1)
[2020-07-02 19:40] LABS: ALBUMIN 3.7 g/dL (3.4-5.0); TOTAL BILIRUBIN 0.4 mg/dL (0.2-1.0); TOTAL PROTEIN 7.4 g/dL (6.4-8.2)
[2020-07-02 19:48] LABS: BILIRUBIN,URINE MODERATE (NEG); CLARITY,URINE CLEAR; COLOR,URINE AMBER; NITRITE,URINE NEGATIVE (NEG); PH,URINE 5.5 (<5.0-8.0); PROTEIN,URINE 30 mg/dL (NEG-TRACE)
[2020-07-02 19:52] LABS: BACTERIA,URINE MOD /HPF (0-FEW); RBC,URINE 0 /HPF (0-2)
[2020-07-02 19:53] LABS: HYALINE CASTS, URINE FEW /HPF
[2020-07-02] MEDS ORDERED: IV NORMAL SALINE 1000ML BAG 1,000 ML IV ONE (20:00)
--- NOTE | 2020-07-02 20:12 | ED.ADGEN ---
Past Medical History Past Medical History: Depression, Diabetes-Type II, GERD, High Cholesterol, Hypertension, Pancreatitis Past Surgical History: Other Additional Past Surgical Histo: PCL L KNEE, upper&lower endoscopies, colonoscopy Smoking Status: Never Smoker Alcohol Use: None Drug Use: None General Adult EDM: Chief Complaint: ABDOMINAL PAIN HPI: HPI: Patient is a 60-year-old male with a past medical history of chronic pancreatitis who presents to the emergency room complaining of right upper quadrant abdominal pain. Patient has had this pain intermittently for several years. This episode started 3 weeks ago. He states he is lost 21 pounds since it started. He gets nausea and vomiting with it. He was evaluated at [facility] and was seen in the GI clinic. They told him he needed an MRCP. He states that they have not even ordered the test so he came in here. Pain is unchanged over the last 3 weeks. He has not had any worsening of his symptoms. He states he just does not want to go back to [facility]. He feels like he is just wasting away and dying. He wants it is abdomen fixed and he states that these doctors just keep giving him medicine. Review of Systems: Review of Systems: Complete ROS is negative unless otherwise documented in HPI Current Medications: Current Medications Medications (Trade) Dose Ordered Sig/Evelio Start Time Stop Time Status Last Admin Dose Admin Info (CONTRAST GIVEN -- Rx MONITORING) 1 each PRN DAILY PRN 07/02/20 20:30 07/02/20 22:12 DC Iohexol (Omnipaque 240 Mg/ml) 30 ml 1X ONCE 07/02/20 20:15 07/02/20 20:16 DC 07/02/20 20:37 30 ML Iohexol (Omnipaque 300 Mg/ml) 75 ml 1X ONCE 07/02/20 20:15 07/02/20 20:16 DC 07/02/20 20:37 75 ML Morphine Sulfate (Morphine Sulfate) 5 mg 1X ONCE 07/02/20 22:00 07/02/20 22:01 DC 07/02/20 22:00 5 MG Oxycodone/ Acetaminophen (Percocet 5/325) 1 tab 1X ONCE 07/02/20 21:30 07/02/20 21:31 DC Sodium Chloride 1,000 ml @ 1,000 mls/hr 1X ONCE 07/02/20 20:00 07/02/20 20:59 DC 07/02/20 20:02 1,000 MLS/HR Allergies: Allergies: Allergies Coded Allergies Type Severity Reaction Last Updated Verified No Known Drug Allergies 08/19/17 No Physical Exam: PE: General: Awake, alert, NAD. Well Nourished, well hydrated. Cooperative HEENT: Atraumatic, EOMI, PERRL, airway patent, moist oral mucosa Neck: Supple, trachea midline Respiratory: CTA bilaterally, normal effort, no wheezing/crackles CV: RRR, no murmur, cap refill <2 GI: Soft, nondistended, nontender, no masses MSK: No obvious deformities Skin: Warm, dry, intact Neuro: A&O x3, speech NL, sensory and motor grossly intact, no focal deficits Psych: Normal affect, normal mood, not suicidal or homicidal Current Patient Data: Labs: Laboratory Tests Test 07/02/20 18:08 07/02/20 18:28 Urine Collection Type Void Urine Color Stacey Urine Clarity Clear Urine pH 5.5 (<5.0-8.0) Urine Specific [place] >=1.030 (1.000-1.030) Urine Protein 30 mg/dL (NEG-TRACE) Urine Glucose (UA) >=1000 mg/dL (NEG) Urine Ketones (Stick) 15 mg/dL (NEG) Urine Blood Negative (NEG) Urine Nitrite Negative (NEG) Urine Bilirubin Moderate (NEG) Urine Urobilinogen Dipstick 1.0 mg/dL (0.2 mg/dL) Urine Leukocyte Esterase Negative (NEG) Urine RBC 0 /HPF (0-2) Urine WBC 5-10 /HPF (0-4) Urine Squamous Epithelial Cells Few /LPF Urine Bacteria Mod /HPF (0-FEW) Urine Hyaline Casts Few /HPF Urine Mucus Mod /LPF White Blood Count 7.2 x10^3/uL (4.0-11.0) Red Blood Count 4.30 x10^6/uL (4.30-5.70) Hemoglobin 12.4 g/dL (13.0-17.5) L Hematocrit 37.7 % (39.0-53.0) L Mean Corpuscular Volume 88 fL (79-100) Mean Corpuscular Hemoglobin 29 pg (25-35) Mean Corpuscular Hemoglobin Concent 33 g/dL (31-37) Red Cell Distribution Width 15.0 % (11.5-14.5) H Platelet Count 254 x10^3/uL (140-400) Neutrophils (%) (Auto) 61 % (31-73) Lymphocytes (%) (Auto) 29 % (24-48) Monocytes (%) (Auto) 8 % (0-9) Eosinophils (%) (Auto) 1 % (0-3) Basophils (%) (Auto) 1 % (0-3) Neutrophils # (Auto) 4.4 x10^3/uL (1.8-7.7) Lymphocytes # (Auto) 2.1 x10^3/uL (1.0-4.8) Monocytes # (Auto) 0.6 x10^3/uL (0.0-1.1) Eosinophils # (Auto) 0.1 x10^3/uL (0.0-0.7) Basophils # (Auto) 0.0 x10^3/uL (0.0-0.2) Sodium Level 137 mmol/L (136-145) Potassium Level 4.2 mmol/L (3.5-5.1) Chloride Level 99 mmol/L (98-107) Carbon Dioxide Level 25 mmol/L (21-32) Anion Gap 13 (6-14) Blood Urea Nitrogen 25 mg/dL (8-26) Creatinine 1.0 mg/dL (0.7-1.3) Estimated GFR (Cockcroft-Gault) 92.2 BUN/Creatinine Ratio 25 (6-20) H Glucose Level 241 mg/dL (70-99) H Calcium Level 10.0 mg/dL (8.5-10.1) Total Bilirubin 0.4 mg/dL (0.2-1.0) Aspartate Amino Transferase (AST) 13 U/L (15-37) L Alanine Aminotransferase (ALT) 29 U/L (16-63) Alkaline Phosphatase 77 U/L (46-116) Total Protein 7.4 g/dL (6.4-8.2) Albumin 3.7 g/dL (3.4-5.0) Albumin/Globulin Ratio 1.0 (1.0-1.7) Lipase 224 U/L (73-393) Laboratory Tests 07/02/20 18:28 Laboratory Tests 07/02/20 18:28 Vital Signs: Vital Signs Date Time Temp Pulse Resp B/P (MAP) Pulse Ox O2 Delivery O2 Flow Rate FiO2 07/02/20 20:42 80 20 154/91 (112) 97 Room Air 07/02/20 18:12 99.2 99.2 EKG: EKG: [] Heart Score: Risk Factors: Risk Factors: DM, Current or recent (<one month) smoker, HTN, HLP, family history of CAD, obesity. Risk Scores: Score 0 - 3: 2.5% MACE over next 6 weeks - Discharge Home Score 4 - 6: 20.3% MACE over next 6 weeks - Admit for Clinical Observation Score 7 - 10: 72.7% MACE over next 6 weeks - Early Invasive Strategies Radiology/Procedures: Radiology/Procedures: [] Course & Med Decision Making: Course & Med Decision Making Pertinent Labs and Imaging studies reviewed. (See chart for details) Patient is a 60-year-old male who presents to the emergency room complaining of right upper quadrant abdominal pain. This is likely secondary to his chronic pancreatitis. Acute abdominal labs and a CT abdomen pelvis will be done to rule out any emergent conditions. CT shows chronic changes around the pancreas. Patient was given pain medicine for symptom management here in the emergency room. He will be referred to GI and surgery. Patient's test results and vitals while in the ED were fully reviewed and discussed with the patient. Patient is stable and at this time does not need admission to the hospital. We have discussed strict return precautions and the importance of following up with their Primary Care Physician. Patient stated understanding and was given an opportunity to ask any questions. Patient is in agreement with plan. Dragon Disclaimer: Dragdemetri Disclaimer: This electronic medical record was generated, in whole or in part, using a voice recognition dictation system. Departure Departure Impression: Primary Impression: Chronic pancreatitis Disposition: 01 DC HOME SELF CARE/HOMELESS Condition: STABLE Referrals: JUAN FU MD (PCP) JUAN COLES MD, THOMAS W MD Patient Instructions: Acute Pancreatitis, [id number], Biliary Colic LESLI ASHTON MD Jul 02, 2020 20:12
[2020-07-02] MEDS ORDERED: IOHEXOL 240 MG/ML 50ML VIAL. PO ONE (20:15)
[2020-07-02] MEDS ORDERED: IOHEXOL 300 MG/ML 100ML VIAL. IV ONE (20:15)
[2020-07-02] MEDS ORDERED: CONTRAST GIVEN. MC PRN (20:30)
[2020-07-02 20:42] VITALS: BP 154/91
--- NOTE | 2020-07-02 20:48 | RAD ---
CT abdomen and pelvis with contrast: Reason for examination: Right upper quadrant abdominal pain. Comparison is made to previous studies dated 08/07/2018 and 08/16/2017. Helical images were obtained through the abdomen and pelvis with intravenous administration of 75 cc Omnipaque 300. Reconstruction was performed in sagittal and coronal planes. Exposure: One or more of the following individualized dose reduction techniques were utilized for thi s examination: 1. Automated exposure control 2. Adjustment of the mA and/or kV according to patient size 3. Use of iterative reconstruction technique. The lung bases are clear. The heart size is normal with no pericardial effusion. No abnormality seen at the liver, spleen, adrenal glands or gallbladder. The pancreas shows no focal lesion but there is some hazy increased density around the pancreatic head and pancreatitis cannot be excluded. Recommend clinical correlation follow-up. The abdominal aorta and inferior vena cava show no acute abnormalities. There is no evidence of diverticulosis, diverticulitis or colitis. No abnorma lity seen at the appendix. The small intestinal tract shows no abnormal dilatation, wall thickening o r evidence of obstruction. The stomach is not distended and no abnormal wall thickening or obstructio n is seen. The kidneys show a small nonobstructing calculus at the lower pole of the right kidney. No hydronephrosis or obstructive uropathy is seen. No abnormality seen at the bladder, prostate gland or seminal vesicles. No free fluid or free air is seen in the abdomen or pelvis. There are severe degenerative changes at the L4-5 disc level. No acute bony abnormalities are seen. IMPRESSION: Hazy density in the mesentery around the pancreatic head. Similar changes have been seen previously. Pancreatitis cannot be excluded. Small nonobstructing calculus in the lower pole right kidney. No hydronephrosis or obstructive uropat hy. Severe degenerative disc disease at the L4-5 disc level. Electronically signed by: Minoo Plascencia MD (07/02/2020 8:46 PM) [facility]
[2020-07-02] MEDS ORDERED: oxyCODONE/APAP 5/325 1 TAB TABLET PO ONE ×2 (21:30)
[2020-07-02] MEDS ORDERED: MORPHINE SULFATE 10 MG/ML VIAL. IV ONE (22:00)
== END 2020-07-02 22:04 | disposition home or self-care (01) ==
LOC: ER 17:54
DX: K86.1 Other chronic pancreatitis (principal); K21.9 Gastro-esophageal reflux disease without esophagitis; E11.9 Type 2 diabetes mellitus without complications; E78.00 Pure hypercholesterolemia, unspecified; I10 Essential (primary) hypertension
CPT/HCPCS: 36415; 74177; 80053; 81001; 83690; 85025; 96361; 96374; 99285; J2270; J7030; Q9966; Q9967